=== PATIENT | male | born 1965 | race Asian ===

== ENCOUNTER 2017-11-06 09:14 | Emergency (ER) | payer MEDICARE, OTHER ==
[~2017-11-06] VITALS: Ht 167.6 cm; Wt 84.1 kg
[~2017-11-06 09:14] MED LIST: AMLO-512 PO; ASPI-556 PO; BENZ1TAB10 PO; CARV3 PO; CHOL100062 PO; CLOZ100 PO; DIVA500T35 PO; FISH1CAP27 PO; FLUO-191 PO; LISI10TA7 PO; OLAN10TA3 PO; PANT40TA25 PO; QUET400T PO; RISP4 PO
[2017-11-06 09:36] VITALS: BP 109/73
[2017-11-06] MEDS ORDERED: KETOROLAC TROMETHAMINE 60 MG/2 ML VIAL IM ONE (10:15)
== END 2017-11-06 11:23 | disposition home or self-care (01) ==
LOC: EMS 09:18
DX: S83.91XA Sprain of unspecified site of right knee, initial encounter (principal); I25.10 Atherosclerotic heart disease of native coronary artery without angina pectoris; J45.909 Unspecified asthma, uncomplicated; I25.2 Old myocardial infarction; F17.210 Nicotine dependence, cigarettes, uncomplicated; X58.XXXA Exposure to other specified factors, initial encounter; Y93.89 Activity, other specified; Y92.89 Other specified places as the place of occurrence of the external cause; Y99.8 Other external cause status
CPT/HCPCS: 73562; 96372; 99284; J1885

== ENCOUNTER 2019-03-03 18:03 | Emergency (ER) | payer MEDICARE, OTHER ==
[~2019-03-03] VITALS: Ht 167.6 cm; Wt 84.1 kg
[~2019-03-03 18:03] MED LIST changes: +DIVA-78 PO; -DIVA500T35 PO
[2019-03-03] MEDS ORDERED: ATOR10TA84 PO (18:45)
[2019-03-03] MEDS ORDERED: HYDR25TA PO (18:45)
[2019-03-03] MEDS ORDERED: TRAZ-219 PO (18:45)
[2019-03-03] MEDS ORDERED: FERR-89 PO (18:45)
[2019-03-03] MEDS ORDERED: ROPI0.257 PO (18:45)
[2019-03-03] MEDS ORDERED: KETOROLAC TROMETHAMINE 30 MG/ML VIAL IM ONE (19:15)
[2019-03-03] MEDS ORDERED: ASPIRIN 81 MG CHEWABLE TABLET PO ONE (19:15)
[2019-03-03 19:30] LABS: BASOPHILS % (AUTO) 1.3 % (0.0-2.0); EOSINOPHILS % (AUTO) 4.7 % (1.0-6.0); HEMATOCRIT 36.3 % (41-53); HEMOGLOBIN 11.6 g/dL (13.5-17.5); LYMPHOCYTES # (AUTO) 2.8 K/uL (1.0-4.8); LYMPHOCYTES % (AUTO) 23.6 % (22.0-44.0); MEAN CORPUSCULAR HEMOGLOBIN 21.4 pg (26.0-34.0); MEAN CORPUSCULAR VOLUME 67 fL (80-100); MONOCYTES # (AUTO) 1.2 K/uL (0.1-1.0); NEUTROPHILS # (AUTO) 7.1 K/uL (1.8-7.7); NEUTROPHILS % (AUTO) 60.4 % (40.0-70.0); PLATELET COUNT (AUTO) 254 K/uL (150-450); RED BLOOD CELL COUNT(AUTO) 5.43 MIL/uL (4.50-5.90); RED CELL DISTRIBUTION WIDTH 16.8 % (11.5-14.5)
[2019-03-03 19:39] LABS: ANION GAP 10 mmol/L (8-16); CALCIUM, TOTAL 9.4 mg/dL (8.8-10.5); CARBON DIOXIDE 28 mmol/L (22-29); CHLORIDE 101 mmol/L (98-107); CREATININE 1.08 mg/dL (0.60-1.30); GLOMERULAR FILTR. RATE CALC > 60 mL/min (>60); GLUCOSE,RANDOM 101 mg/dL (70-110); POTASSIUM 3.6 mmol/L (3.5-5.1); SODIUM SERUM 139 mmol/L (136-145); UREA NITROGEN, BLOOD 15 mg/dL (7-18)
[2019-03-03] MEDS ORDERED: LISINOPRIL 10 MG TABLET PO ONE (19:45)
[2019-03-03 19:52] LABS: B-TYPE NATRIURETIC PEPTIDE 29 pg/mL (0-100)
[2019-03-03 20:04] LABS: ALANINE AMINOTRANSFERASE 13 U/L (12-78); ALBUMIN 3.8 g/dL (3.4-5.0); ALKALINE PHOSPHATASE 50 U/L (46-116); ASPARTATE AMINOTRANSFERASE 16 U/L (15-37); BILIRUBIN,TOTAL 0.4 mg/dL (0.1-1.0); CREATINE KINASE, TOTAL ONLY 107 U/L (39-308); TOTAL PROTEIN, SERUM 7.6 g/dL (6.4-8.2)
[2019-03-03 22:59] VITALS: BP 138/81
[2019-03-03 23:08] LABS: APPEARANCE,URINE CLEAR (CLEAR); BILIRUBIN,URINE NEGATIVE (NEGATIVE); GLUCOSE, URINE (UA) NEGATIVE (NEGATIVE); KETONES,URINE NEGATIVE (NEGATIVE); LEUKOCYTE ESTERASE ,URINE NEGATIVE (NEGATIVE); NITRATE,URINE NEGATIVE (NEGATIVE); OCCULT BLOOD,URINE MODERATE (NEGATIVE); PH,URINE 5.5 (5.0-8.0); PROTEIN,URINE TRACE (NEGATIVE)
[2019-03-03 23:16] LABS: BACTERIA,URINE None Seen /HPF (None Seen); MUCUS,URINE Few LPF (None Seen); SQUAMOUS EPITHELIAL CELL,UR Rare /LPF (None Seen); WBC,URINE None Seen /HPF (0-5)
== END 2019-03-03 23:16 | disposition home or self-care (01) ==
LOC: EMS 18:07
DX: R07.89 Other chest pain (principal); I10 Essential (primary) hypertension; F32.9 Major depressive disorder, single episode, unspecified; F17.210 Nicotine dependence, cigarettes, uncomplicated; F20.9 Schizophrenia, unspecified; I25.10 Atherosclerotic heart disease of native coronary artery without angina pectoris; J45.909 Unspecified asthma, uncomplicated; I25.2 Old myocardial infarction; Z79.899 Other long term (current) drug therapy
CPT/HCPCS: 36415; 71045; 80053; 81001; 82550; 83880; 84484; 85025; 93005; 96372; 99285; J1885

== ENCOUNTER 2019-03-29 23:04 | Emergency (ER) | payer MEDICARE, OTHER ==
[~2019-03-29] VITALS: Ht 167.6 cm; Wt 75.0 kg
[~2019-03-29 23:04] MED LIST changes: -AMLO-512 PO; +ATOR10TA84 PO; -CHOL100062 PO; +FERR-89 PO; -FISH1CAP27 PO; -FLUO-191 PO; +HYDR25TA PO; -OLAN10TA3 PO; -PANT40TA25 PO; -QUET400T PO; -RISP4 PO; +ROPI0.257 PO; +TRAZ-252 PO
[2019-03-30] MEDS ORDERED: KETOROLAC TROMETHAMINE 10 MG TABLET PO ONE
[2019-03-30 00:06] LABS: BASOPHILS % (AUTO) 0.8 % (0.0-2.0); HEMATOCRIT 35.1 % (41-53); HEMOGLOBIN 11.2 g/dL (13.5-17.5); LYMPHOCYTES # (AUTO) 2.4 K/uL (1.0-4.8); LYMPHOCYTES % (AUTO) 18.1 % (22.0-44.0); MEAN CORPUSCULAR HEMOGLOBIN 21.6 pg (26.0-34.0); MEAN CORPUSCULAR HGB CONC 31.9 G/dL (31.0-37.0); MEAN CORPUSCULAR VOLUME 68 fL (80-100); MONOCYTES # (AUTO) 1.2 K/uL (0.1-1.0); NEUTROPHILS # (AUTO) 9.2 K/uL (1.8-7.7); NEUTROPHILS % (AUTO) 70.1 % (40.0-70.0); PLATELET COUNT (AUTO) 271 K/uL (150-450); RED BLOOD CELL COUNT(AUTO) 5.19 MIL/uL (4.50-5.90); RED CELL DISTRIBUTION WIDTH 16.9 % (11.5-14.5)
[2019-03-30] MEDS ORDERED: KETOROLAC TROMETHAMINE 30 MG/ML VIAL IVP ONE (00:15)
[2019-03-30 00:20] LABS: INR 1.1 (0.9-1.1); PROTHROMBIN TIME 11.4 SEC (9.4-11.6)
[2019-03-30 00:22] LABS: ANION GAP 9 mmol/L (8-16); B-TYPE NATRIURETIC PEPTIDE 36 pg/mL (0-100); CALCIUM, TOTAL 8.9 mg/dL (8.8-10.5); CARBON DIOXIDE 29 mmol/L (22-29); CHLORIDE 100 mmol/L (98-107); GLOMERULAR FILTR. RATE CALC > 60 mL/min (>60); GLUCOSE,RANDOM 118 mg/dL (70-110); POTASSIUM 3.6 mmol/L (3.5-5.1); SODIUM SERUM 138 mmol/L (136-145); UREA NITROGEN, BLOOD 15 mg/dL (7-18)
[2019-03-30 00:47] LABS: ALANINE AMINOTRANSFERASE 18 U/L (12-78); ALBUMIN 3.6 g/dL (3.4-5.0); ALKALINE PHOSPHATASE 47 U/L (46-116); ASPARTATE AMINOTRANSFERASE 17 U/L (15-37); BILIRUBIN,TOTAL 0.4 mg/dL (0.1-1.0); CREATINE KINASE, TOTAL ONLY 110 U/L (39-308); TOTAL PROTEIN, SERUM 7.5 g/dL (6.4-8.2)
[2019-03-30 01:39] VITALS: BP 151/96
== END 2019-03-30 02:06 | disposition home or self-care (01) ==
LOC: EMS 23:08
DX: R07.9 Chest pain, unspecified (principal); M54.9 Dorsalgia, unspecified; R10.9 Unspecified abdominal pain; G89.29 Other chronic pain; J45.909 Unspecified asthma, uncomplicated; I25.10 Atherosclerotic heart disease of native coronary artery without angina pectoris; F20.9 Schizophrenia, unspecified; F17.210 Nicotine dependence, cigarettes, uncomplicated; Z88.8 Allergy status to other drugs, medicaments and biological substances; Z79.82 Long term (current) use of aspirin; Z79.899 Other long term (current) drug therapy
CPT/HCPCS: 36415; 71045; 80053; 82550; 83880; 84484; 85025; 85610; 85730; 93005; 96374; 99285; J1885

== ENCOUNTER 2019-07-19 17:27 | Emergency (ER) | payer MEDICARE ==
[~2019-07-19] VITALS: Ht 167.6 cm; Wt 72.7 kg
[2019-07-19] MEDS ORDERED: IBUPROFEN 600 MG TABLET PO ONE (18:00)
[2019-07-19 18:21] LABS: BASOPHILS % (AUTO) 0.8 % (0.0-2.0); EOSINOPHILS % (AUTO) 3.8 % (1.0-6.0); HEMATOCRIT 34.8 % (41-53); LYMPHOCYTES # (AUTO) 3.1 K/uL (1.0-4.8); LYMPHOCYTES % (AUTO) 22.2 % (22.0-44.0); MEAN CORPUSCULAR HEMOGLOBIN 21.9 pg (26.0-34.0); MEAN CORPUSCULAR HGB CONC 31.6 G/dL (31.0-37.0); MEAN CORPUSCULAR VOLUME 69 fL (80-100); MONOCYTES # (AUTO) 1.7 K/uL (0.1-1.0); MONOCYTES % (AUTO) 11.9 % (2.0-9.0); NEUTROPHILS # (AUTO) 8.6 K/uL (1.8-7.7); NEUTROPHILS % (AUTO) 61.3 % (40.0-70.0); PLATELET COUNT (AUTO) 243 K/uL (150-450); RED BLOOD CELL COUNT(AUTO) 5.04 MIL/uL (4.50-5.90); RED CELL DISTRIBUTION WIDTH 17.3 % (11.5-14.5)
[2019-07-19 18:36] LABS: C-REACTIVE PROTEIN QUANT 1.2 mg/dL (0.00-0.30)
[2019-07-19 18:45] LABS: URIC ACID 8.6 mg/dL (2.6-7.2)
[2019-07-19] MEDS ORDERED: CefTRIAXone SODIUM 1 GM/VIAL IM ONE (19:00)
[2019-07-19] MEDS ORDERED: LIDOCAINE/PF 1% 2 ML VIAL IM ONE (19:00)
[2019-07-19 19:15] VITALS: BP 145/85
== END 2019-07-19 20:24 | disposition home or self-care (01) ==
LOC: EMS 17:28
DX: L03.115 Cellulitis of right lower limb (principal); M10.9 Gout, unspecified; I25.10 Atherosclerotic heart disease of native coronary artery without angina pectoris; I25.2 Old myocardial infarction; J45.909 Unspecified asthma, uncomplicated; F20.9 Schizophrenia, unspecified; F17.210 Nicotine dependence, cigarettes, uncomplicated; Z79.899 Other long term (current) drug therapy; Z88.5 Allergy status to narcotic agent; Z88.8 Allergy status to other drugs, medicaments and biological substances
CPT/HCPCS: 36415; 73610; 84550; 85025; 86140; 96372; 99284; J0696; J3490

== ENCOUNTER 2020-01-29 01:25 | Inpatient (IN) | payer MEDICARE, MEDICAID ==
[~2020-01-29] VITALS: Ht 167.6 cm; Wt 62.5 kg
[~2020-01-29 01:25] MED LIST changes: +HYDR-1475 PO; -HYDR25TA PO
[2020-01-29] MEDS ORDERED: SODIUM CHLORIDE 0.9% 1,000 ML IV ONE (02:45)
[2020-01-29 03:00] LABS: ANION GAP 5 mmol/L (8-16); CALCIUM, TOTAL 9.3 mg/dL (8.8-10.5); CARBON DIOXIDE 31 mmol/L (22-29); CHLORIDE 101 mmol/L (98-107); CREATININE 1.14 mg/dL (0.60-1.30); GLOMERULAR FILTR. RATE CALC > 60 mL/min (>60); GLUCOSE,RANDOM 96 mg/dL (70-110); POTASSIUM 3.8 mmol/L (3.5-5.1); SODIUM SERUM 137 mmol/L (136-145); UREA NITROGEN, BLOOD 14 mg/dL (7-18)
[2020-01-29 03:06] LABS: ALANINE AMINOTRANSFERASE 26 U/L (12-78); ALBUMIN 3.9 g/dL (3.4-5.0); ALKALINE PHOSPHATASE 59 U/L (46-116); ASPARTATE AMINOTRANSFERASE 18 U/L (15-37); BILIRUBIN,TOTAL 0.5 mg/dL (0.1-1.0); CREATINE KINASE, TOTAL ONLY 58 U/L (39-308); LIPASE 142 U/L (73-393); TOTAL PROTEIN, SERUM 7.7 g/dL (6.4-8.2)
[2020-01-29 03:14] LABS: BASOPHILS % (AUTO) 0.9 % (0.0-2.0); EOSINOPHILS % (AUTO) 3.6 % (1.0-6.0); HEMATOCRIT 35.6 % (41-53); HEMOGLOBIN 11.5 g/dL (13.5-17.5); LYMPHOCYTES # (AUTO) 2.4 K/uL (1.0-4.8); LYMPHOCYTES % (AUTO) 22.6 % (22.0-44.0); MEAN CORPUSCULAR HEMOGLOBIN 21.6 pg (26.0-34.0); MEAN CORPUSCULAR HGB CONC 32.3 G/dL (31.0-37.0); MEAN CORPUSCULAR VOLUME 67 fL (80-100); MONOCYTES # (AUTO) 0.9 K/uL (0.1-1.0); MONOCYTES % (AUTO) 8.6 % (2.0-9.0); NEUTROPHILS # (AUTO) 6.9 K/uL (1.8-7.7); NEUTROPHILS % (AUTO) 64.3 % (40.0-70.0); PLATELET COUNT (AUTO) 273 K/uL (150-450); RED BLOOD CELL COUNT(AUTO) 5.33 MIL/uL (4.50-5.90); RED CELL DISTRIBUTION WIDTH 16.6 % (11.5-14.5)
[2020-01-29] MEDS ORDERED: ONDANSETRON HCL 4 MG/2 ML VIAL IVP PRN ×2 (04:45→06:15)
[2020-01-29] MEDS ORDERED: 0.9% SODIUM CHLORIDE 10 ML SYRINGE IVP PRN ×2 (04:45→06:15)
[2020-01-29] MEDS ORDERED: ACETAMINOPHEN 325 MG TABLET PO PRN ×2 (04:45→06:15)
[2020-01-29 05:58] LABS: APPEARANCE,URINE CLEAR (CLEAR); BILIRUBIN,URINE NEGATIVE (NEGATIVE); GLUCOSE, URINE (UA) NEGATIVE (NEGATIVE); KETONES,URINE NEGATIVE (NEGATIVE); LEUKOCYTE ESTERASE ,URINE NEGATIVE (NEGATIVE); NITRATE,URINE NEGATIVE (NEGATIVE); OCCULT BLOOD,URINE NEGATIVE (NEGATIVE); PH,URINE 6.5 (5.0-8.0); PROTEIN,URINE NEGATIVE (NEGATIVE); UROBILINOGEN,URINE 0.2 mg/dL (<=1.0)
[2020-01-29] MEDS ORDERED: MAGNESIUM OXIDE 400 MG TABLET PO PRN (06:15)
[2020-01-29] MEDS ORDERED: POTASSIUM CHL 10 MEQ/WATER 50 ML IV PRN (06:15)
[2020-01-29] MEDS ORDERED: ZOLPIDEM TARTRATE 5 MG TABLET PO PRN (06:15)
[2020-01-29] MEDS ORDERED: POTASSIUM CHLORIDE 20 MEQ ER TABLET PO PRN (06:15)
[2020-01-29] MEDS ORDERED: MAGNESIUM SULFATE 2 GM/WATER 50 ML IV PRN (06:15)
[2020-01-29] MEDS ORDERED: MAGNESIUM SULFATE 4 GM/WATER 100 ML IV PRN (06:15)
[2020-01-29 06:34] VITALS: BP 143/89
[2020-01-29] MEDS ORDERED: INFLUENZA VIRUS VACCINE QVS 2019-20 (3YR+)/PF 60 MCG/0.5 ML SYRINGE IM ONE (07:00)
[2020-01-29 07:15] VITALS: BP 115/70
[2020-01-29] MEDS: CARVEDILOL 3.125 MG TABLET PO SCH ×2 (08:53→20:23)
[2020-01-29] MEDS: ASPIRIN 81 MG EC TABLET PO SCH (08:54)
[2020-01-29] MEDS: FERROUS SULFATE 325 MG EC TABLET PO SCH (08:55)
[2020-01-29] MEDS: ATORVASTATIN CALCIUM 10 MG TABLET PO SCH (08:55)
[2020-01-29] MEDS: DOCUSATE SODIUM 100 MG CAPSULE PO SCH ×2 (08:55→20:23)
[2020-01-29] MEDS: BENZTROPINE MESYLATE 1 MG TABLET PO SCH ×2 (08:56→20:23)
[2020-01-29] MEDS: DIVALPROEX SODIUM 500 MG DR TABLET PO SCH ×2 (08:56→20:23)
[2020-01-29] MEDS: PANTOPRAZOLE SODIUM 40 MG DR TABLET PO SCH (08:57)
[2020-01-29] MEDS: LISINOPRIL 10 MG TABLET PO SCH ×2 (08:57→20:23)
[2020-01-29] MEDS: ROPINIRole HCL 0.25 MG TABLET PO SCH ×3 (08:58→20:23)
[2020-01-29 11:16] VITALS: BP 110/70
[2020-01-29] MEDS: HYDROCHLOROTHIAZIDE 25 MG TABLET PO SCH (11:58)
[2020-01-29 15:49] VITALS: BP 150/95
[2020-01-29 19:42] VITALS: BP 132/82
[2020-01-29] MEDS ORDERED: TraZODone HCL 50 MG TABLET PO SCH (21:00)
[2020-01-29 23:07] VITALS: BP 109/65
[2020-01-30 04:08] VITALS: BP 126/86
[2020-01-30 07:52] LABS: HEMATOCRIT 31.3 % (41-53); HEMOGLOBIN 10.2 g/dL (13.5-17.5); LYMPHOCYTES # (AUTO) 3.2 K/uL (1.0-4.8); LYMPHOCYTES % (AUTO) 29.7 % (22.0-44.0); MEAN CORPUSCULAR HEMOGLOBIN 21.8 pg (26.0-34.0); MEAN CORPUSCULAR HGB CONC 32.7 G/dL (31.0-37.0); MEAN CORPUSCULAR VOLUME 67 fL (80-100); MONOCYTES # (AUTO) 0.8 K/uL (0.1-1.0); MONOCYTES % (AUTO) 7.4 % (2.0-9.0); NEUTROPHILS # (AUTO) 6.3 K/uL (1.8-7.7); NEUTROPHILS % (AUTO) 57.9 % (40.0-70.0); PLATELET COUNT (AUTO) 233 K/uL (150-450); RED BLOOD CELL COUNT(AUTO) 4.68 MIL/uL (4.50-5.90); RED CELL DISTRIBUTION WIDTH 16.6 % (11.5-14.5)
[2020-01-30 08:04] LABS: ANION GAP 7 mmol/L (8-16); CALCIUM, TOTAL 8.7 mg/dL (8.8-10.5); CARBON DIOXIDE 28 mmol/L (22-29); CHLORIDE 105 mmol/L (98-107); CREATININE 0.89 mg/dL (0.60-1.30); GLOMERULAR FILTR. RATE CALC > 60 mL/min (>60); GLUCOSE,RANDOM 85 mg/dL (70-110); POTASSIUM 4.2 mmol/L (3.5-5.1); SODIUM SERUM 140 mmol/L (136-145); UREA NITROGEN, BLOOD 15 mg/dL (7-18)
[2020-01-30 08:18] VITALS: BP 136/82
[2020-01-30] MEDS: ROPINIRole HCL 0.25 MG TABLET PO SCH (09:00)
[2020-01-30] MEDS: DOCUSATE SODIUM 100 MG CAPSULE PO SCH (09:00)
[2020-01-30] MEDS: FERROUS SULFATE 325 MG EC TABLET PO SCH (09:00)
[2020-01-30] MEDS: CARVEDILOL 3.125 MG TABLET PO SCH (09:00)
[2020-01-30] MEDS: BENZTROPINE MESYLATE 1 MG TABLET PO SCH (09:00)
[2020-01-30] MEDS: DIVALPROEX SODIUM 500 MG DR TABLET PO SCH (09:00)
[2020-01-30] MEDS: LISINOPRIL 10 MG TABLET PO SCH (09:00)
[2020-01-30] MEDS: PANTOPRAZOLE SODIUM 40 MG DR TABLET PO SCH (09:09)
[2020-01-30] MEDS: ASPIRIN 81 MG EC TABLET PO SCH (09:09)
[2020-01-30] MEDS: HYDROCHLOROTHIAZIDE 25 MG TABLET PO SCH (09:10)
[2020-01-30] MEDS: ATORVASTATIN CALCIUM 10 MG TABLET PO SCH (09:10)
[2020-01-30] MEDS ORDERED: ASPI-728 PO (11:53)
[2020-01-30] MEDS ORDERED: ATOR10TA84 PO (11:55)
[2020-01-30 12:00] VITALS: BP 120/85
[2020-01-30 15:23] VITALS: BP 125/75
== END 2020-01-30 15:15 | disposition home or self-care (01) | DRG 74 ==
LOC: EMS 01:25 → 5N 05:00
PROVIDERS: ADMIT Internal Medicine; ATTEND Internal Medicine
DX: G90.8 Other disorders of autonomic nervous system (principal); J45.909 Unspecified asthma, uncomplicated; F31.9 Bipolar disorder, unspecified; I25.10 Atherosclerotic heart disease of native coronary artery without angina pectoris; F20.9 Schizophrenia, unspecified; G89.29 Other chronic pain; F17.210 Nicotine dependence, cigarettes, uncomplicated; M54.9 Dorsalgia, unspecified; Z82.5 Family history of asthma and other chronic lower respiratory diseases; I25.2 Old myocardial infarction; Z82.49 Family history of ischemic heart disease and other diseases of the circulatory system; Z88.8 Allergy status to other drugs, medicaments and biological substances; Z28.21 Immunization not carried out because of patient refusal
CPT/HCPCS: 70450; 83735; 92610; 93005; 97116; 97161; J3475; J7030

== ENCOUNTER 2020-07-27 19:30 | Emergency (ER) | payer MEDICARE ==
[~2020-07-27] VITALS: Ht 177.8 cm; Wt 79.5 kg
[~2020-07-27 19:30] MED LIST changes: -CLOZ100 PO; +CLOZ100T32 PO; +DIVA-112 PO; -DIVA-78 PO
[2020-07-27 22:58] LABS: BASOPHILS % (AUTO) 0.8 % (0.0-2.0); EOSINOPHILS % (AUTO) 4.4 % (1.0-6.0); HEMATOCRIT 29.5 % (41-53); HEMOGLOBIN 9.3 g/dL (13.5-17.5); LYMPHOCYTES # (AUTO) 3.2 K/uL (1.0-4.8); LYMPHOCYTES % (AUTO) 23.7 % (22.0-44.0); MEAN CORPUSCULAR HEMOGLOBIN 21.4 pg (26.0-34.0); MEAN CORPUSCULAR HGB CONC 31.4 G/dL (31.0-37.0); MEAN CORPUSCULAR VOLUME 68 fL (80-100); MONOCYTES # (AUTO) 1.2 K/uL (0.1-1.0); MONOCYTES % (AUTO) 8.6 % (2.0-9.0); NEUTROPHILS # (AUTO) 8.4 K/uL (1.8-7.7); NEUTROPHILS % (AUTO) 62.5 % (40.0-70.0); PLATELET COUNT (AUTO) 327 K/uL (150-450); RED BLOOD CELL COUNT(AUTO) 4.33 MIL/uL (4.50-5.90); RED CELL DISTRIBUTION WIDTH 17.8 % (11.5-14.5)
[2020-07-27 23:08] LABS: ANION GAP 6 mmol/L (8-16); CALCIUM, TOTAL 9.3 mg/dL (8.8-10.5); CARBON DIOXIDE 29 mmol/L (22-29); CHLORIDE 104 mmol/L (98-107); CREATININE 1.14 mg/dL (0.60-1.30); GLOMERULAR FILTR. RATE CALC > 60 mL/min (>60); GLUCOSE,RANDOM 108 mg/dL (70-110); POTASSIUM 3.8 mmol/L (3.5-5.1); SODIUM SERUM 139 mmol/L (136-145); UREA NITROGEN, BLOOD 19 mg/dL (7-18)
[2020-07-27 23:24] LABS: ALANINE AMINOTRANSFERASE 22 U/L (12-78); ALBUMIN 3.7 g/dL (3.4-5.0); ALKALINE PHOSPHATASE 57 U/L (46-116); ASPARTATE AMINOTRANSFERASE 16 U/L (15-37); BILIRUBIN,TOTAL 0.4 mg/dL (0.1-1.0); FREE T4 (FREE THYROXINE) 1.22 ng/dL (0.76-1.46)
[2020-07-27 23:33] LABS: AMPHET/METH SCREEN,URINE NEGATIVE (NEGATIVE); BARBITURATE SCREEN, URINE NEGATIVE (NEGATIVE); BENZODIAZEPINES SCREEN,URINE NEGATIVE (NEGATIVE); CANNABINOID SCREEN,URINE NEGATIVE (NEGATIVE); COCAINE SCREEN,URINE NEGATIVE (NEGATIVE); METHADONE SCREEN, URINE NEGATIVE (NEGATIVE); OPIATE SCREEN,URINE NEGATIVE (NEGATIVE)
[2020-07-28 00:25] LABS: PHENCYCLIDINE SCREEN,URINE NEGATIVE (NEGATIVE)
[2020-07-28 01:00] VITALS: BP 127/73
== END 2020-07-28 01:21 | disposition home or self-care (01) ==
LOC: EMS 19:30
DX: D64.9 Anemia, unspecified (principal); F17.210 Nicotine dependence, cigarettes, uncomplicated; I25.10 Atherosclerotic heart disease of native coronary artery without angina pectoris; F31.9 Bipolar disorder, unspecified; J45.909 Unspecified asthma, uncomplicated; F20.9 Schizophrenia, unspecified
CPT/HCPCS: 36415; 80053; 80307; 84439; 84443; 85025; 99284; G0480